=== PATIENT | male | born 1950 | race Caucasian/White ===

== ENCOUNTER 2018-03-10 22:17 | Emergency (ER) | payer MEDICARE, MEDICAID ==
[2018-03-10 22:43] LABS: % BASOPHILS 0.1 % (0.0-2.0); % EOSINOPHILS 0.3 % (0.0-5.0); % LYMPHOCYTES 11.1 % (20.0-50.0); % MONOCYTES 11.3 % (2.0-10.0); % NEUTROPHILS 77.2 % (40.0-80.0); HEMATOCRIT 33.8 % (41.0-60); HEMOGLOBIN 11.4 gm/dL (12-16); LYMPHOCYTE ABSOLUTE 1.2 Th/cmm (1.5-3.0); MEAN CORPUSCULAR HGB CONC 33.6 pg (28.0-36.0); MEAN PLATELET VOLUME 8.6 fl; MONOCYTE ABSOLUTE 1.3 Th/cmm (0.3-1.0); NEUTROPHILE ABSOLUTE 8.6 Th/cmm (1.8-8.0); PLATELET COUNT 160 Th/cmm (150-400); RED BLOOD COUNT 3.07 Mil/cmm (3.80-5.80); RED CELL DISTRIBUTION WIDTH 12.7 % (11.5-20.0); WHITE BLOOD COUNT 11.1 Th/cmm (4.8-10.8)
[2018-03-10 23:01] LABS: ALB/GLOB RATIO 0.9 (1.0-1.8); ALBUMIN 3.5 gm/dL (4.2-5.5); ALKALINE PHOSPHATASE 83 U/L (34-104); ANION GAP 20.7 (7.0-16.0); BILIRUBIN,TOTAL 3.2 mg/dL (0.3-1.0); BUN - UREA NITROGEN 24 mg/dL (7-25); CALCIUM SERUM 9.3 mg/dL (8.6-10.3); CARBON DIOXIDE 19.7 mEq/L (21.0-31.0); CHLORIDE 98 mEq/L (98-107); CREATININE - SERUM 0.7 mg/dL (0.7-1.3); GFR AFRICAN-AMERICAN > 60.0 ml/min (>90); GFR NON AFRICAN-AMERICAN > 60.0 ml/min; GLUCOSE 108 mg/dL (70-105); POTASSIUM SERUM 3.4 mEq/L (3.5-5.1); SGOT 84 U/L (13-39); SGPT/ALT 25 U/L (7-52); SODIUM SERUM 135 mEq/L (136-145); TOTAL PROTEIN,SERUM 7.5 gm/dL (6.0-8.3)
[2018-03-10 23:10] LABS: MEAN CELL VOLUME 110.3 fl (80-99)
--- NOTE | 2018-03-10 23:52 | ED Physician Chart ---
ED Chief Complaint/HPI - Patient Information Date Seen:: 03/10/18 Time Seen:: 21:40 Chief Complaint:: head and face trauma History of Present Illness:: location: head, face, left foot quality: pain severity: mild duration: one day context: pt reports history of regular ethanol use. says he accidentally kicked dining room table yesterday and then also fell and struck head and face. cannot recall if there was loss of consciousness, says he was drinking. doesnt remember. but does state this occurred about 24 hours ago. noted some swelling of face and pain at left foot and this evening decided to come to the ER for pt clarifies that he did not lose consciousness when he fell and hit his head. today decided to call ambulance for transfer to ER because of facial swelling and foot pain. no paralysis or paresthesia. reports moderate soft tissue swelling about left eye such that it is difficult to open eye. however when he opens the eye he says he has normal vision. pain complaint is left foot. no facial pain or head pain is reported during physician history mod factors: none assoc s/s: none hx from pt. Allergies:: Allergies Allergy/AdvReac Type Severity Reaction Status Date / Time No Known Allergies Allergy Verified 03/10/18 22:20 Vitals:: Vital Signs - 8 hr 03/10/18 22:20 Temp 98.1 F HR 110 RR 19 BP 148/87 O2 Sat % 96 Historian:: Patient, EMS Review:: Nurse's Note Reviewed, EMS run form Reviewed ED Review of Systems - Review of Systems General/Constitutional: No fever, No chills, No weakness, Edema (facial edema after ground level fall) Skin: No skin lesions (abrasions on face and scalp (pt says these are from ground level fall yesterday)), No rash Head: No headache Eyes: No loss of vision ENT: No earache, No sore throat Neck: No neck pain, No stiffness Cardio Vascular: No chest pain, No edema Pulmonary: No SOB, No cough, No wheezing GI: No nausea, No vomiting, No diarrhea G/U: No dysuria Musculoskeletal: Muscle pain (soft tissue pain left foot toes. ) Hematopoietic: No lymphadenopathy Allergic/Immuno: No angioedema Neurological: No syncope, No seizure ED Past Medical History - Past Medical History Past Medical History: No significant medical hx Family History: None Social History: Alcohol, Single, Lives Alone Surgical History: None Psychiatricy History: None Medication: None Family Medical History - Family Member Mother History Unknown: Yes ED Physical Exam - Physical Examination General/Constitutional: Awake, Well-developed, well-nourished, Alert, No distress, GCS 15, Non-toxic appearing, Ambulatory Head: Atraumatic (facial trauma with soft tissue tenderness, facial bones are examined, nontender, no deformity, no orbital tenderness. ) Eyes: Lids, conjuctiva normal (bilateral soft tissue edema and ecchymosis of upper and lower eyelids bilaterally. worse left eye. no bleeding, no wound), PERRL, EOMI Skin: Nl inspection, No ecchymosis (multiple facial and scalp ecchymosis. ) ENMT: External ears, nose nl, Nasal exam nl, Oropharynx nl, Tonsils nl Neck: Nontender, Full ROM w/o pain Respiratory: Nl effort/Exclusion, Clear to Auscultation, No Wheeze/Rhonchi/Rales Cardio Vascular: RRR, No murmur, gallop, rubs, NL S1 S2 GI: No tenderness/rebounding/guarding, Nondistended, No McBurney tenderness : No CVA tenderness Extremities: No tenderness or effusion (left foot exam, normal dorsalis pedis pulse, soft tissue tenderness at toes without deformity, no wound, no ecchymosis , no bleeding. ), Full ROM, normal strength in all extremities, No edema ( normal cap refill. ), Normal digits & nails Neuro/Psych: Alert/oriented, DTR's symmetric, Normal sensory exam, Normal motor strength, Judgement/insight normal, Mood normal, No focal deficits Misc: Normal back, No paraspinal tenderness ED Labs/Radiology/EKG Results - Lab Results Results: Laboratory Tests 03/10/18 03/10/18 22:35 22:35 WBC 11.1 H RBC 3.07 L Hgb 11.4 L Hct 33.8 L MCV 110.3 H MCH 37.0 H MCHC Differential 33.6 RDW 12.7 Plt Count 160 MPV 8.6 Neutrophils % 77.2 Lymphocytes % 11.1 L Monocytes % 11.3 H Eosinophils % 0.3 Basophils % 0.1 Sodium 135 L Potassium 3.4 L Chloride 98 Carbon Dioxide 19.7 L Anion Gap 20.7 H BUN 24 Creatinine 0.7 Est GFR ( Amer) > 60.0 Est GFR (Non-Af Amer) > 60.0 BUN/Creatinine Ratio 34.3 Glucose 108 H Calcium 9.3 Total Bilirubin 3.2 H AST 84 H ALT 25 Alkaline Phosphatase 83 Total Protein 7.5 Albumin 3.5 L Globulin 4.0 Albumin/Globulin Ratio 0.9 L Ethyl Alcohol 66 H - Radiology Results Results: Facial CT extensive facial and periorbital soft tissue hematoma no acute facial or orbital fractures, intact globes and lenses - the temporomandibular joints are well situated. intact pterygoid plates. Head CT extensive extracranial soft tissue hematomas. no acute skull fracture no acute intracranial hemorrhage, no mass effect or midline shift age related changes chronic sinus disease both studies are RAD READ - EKG Interpretations Comments:: EKG sinus tachycardia 110 atrial premature complex prolonged QT interval no acute ST elevation no acute ST depression normal axis pt with no chest pain and no SOB abnormal EKG with chronic findings ER READ ED Septic Shock - <6hrs of presentation: Vital Signs: Vital Signs - 8 hr 03/10/18 22:20 Temp 98.1 F HR 110 RR 19 BP 148/87 O2 Sat % 96 Assessment of Lungs: Lung CTA bilateral Assessment of Heart: RRR EKG Interpretation: NSR (sinus tachycardia rate 110 on arrival to ER) Capillary refill evaluation: Capillary refill < 2 secs Skin Exam: Warm, Dry, Good Turgur ED Reassessment (Disposition) - Reassessment Reassessment:: medical decision making pt with multiple soft tissue ecchymosis on scalp and face from ground level fall pt is awake, alert, no neurologic deficits are observed CN 2-12 equal and bilaterally intact. left foot xray normal alignment of foot bones severe degenerative changes old fracture metatarsal 2 and 3 no acute fracture no acute dislocation ER READ pt with lab studies that do not show an acute diagnosis will keep patient overnight in ER and if patient does well. will discharge to home. Reassessment Condition:: Improved - Diagnosis Diagnosis:: head trauma without loss of consciousness facial contusions left foot contusion - Aftercare/Follow up Instructions Aftercare/Follow-Up Instructions:: Refer to Discharge Instructions - Patient Disposition Discharge/Transfer:: Home Condition at Disposition:: Stable, Improved
--- NOTE | 2018-03-11 08:51 | Diagnostic Imaging Report ---
Left foot 2 views Indication: pain Comparison: none Findings: there is evidence of age-indeterminate possibly subacute to chronic fractures involving the necks of the second,, third and fourth metacarpals with diffuse callus formation seen most pronounced within the third metacarpal. Note exam is limited as oblique views were not obtained. There is subtle irregularity seen along the distal aspect of the fifth proximal phalanx. Moderate degenerative changes are noted. Hallux valgus is noted. No significant focal soft tissue swelling. Diffuse atherosclerosis is noted. Small plantar calcaneal spur is noted. Impression: Age indeterminate osseous subacute to chronic fractures of the necks of the second, third, and fourth metacarpal with diffuse bridging callus formation noted. Clinical correlation is recommended Subtle irregularity involving the distal aspect of the fifth proximal phalanx, probable projectional. A nondisplaced fracture is less likely. Please correlate with clinical findings and point tenderness in this region Degenerative changes. Hallux valgus. Atherosclerotic vascular disease. In the setting of trauma, if clinical symptoms persist and there is continued concern for an occult fracture, follow up exams in 5-7 days is suggested.
--- NOTE | 2018-03-11 09:18 | Diagnostic Imaging Report ---
Head CT without intravenous contrast Indication: Fall Comparison: CT facial the same day Technique: Axial images were obtained from the vertex to the skull base without IV contrast. Coronal reconstructions were made. Total DLP: 960, [id number] FINDINGS: Images of the brain obtained without contrast demonstrate diffuse atrophy with bilateral extra-axial CSF prominence. No hemorrhage is identified. Mild white matter disease is noted. The ventricles and basal cisterns are patent. No mass effect or midline shift. Atherosclerosis is noted. There is soft tissue swelling throughout the posterior scalp. Sinusitis is noted. No evidence of a skull fracture. Sinus disease is noted. IMPRESSION: Posterior scalp soft tissue swelling and hematoma formation. No skull fracture identified. Diffuse bilateral CSF prominence probably related to atrophy. No evidence of gross hemorrhage. Mild supratentorial white matter disease which is nonspecific and may be due to chronic microvessel ischemia.. Extensive edema swelling also seen throughout the facial regions bilaterally with anasarca. Clinical correlation is needed. Atherosclerotic vascular disease.
--- NOTE | 2018-03-11 09:31 | Diagnostic Imaging Report ---
CT facial bones without IV contrast History: Fall Comparison: CT head the same day. Technique: Axial images of the facial bones were obtained without IV contrast. Multiplanar reconstructions were made. Total DLP 445 CTD I 21.7 Findings: The bilateral orbital floors are intact. The globes and intraconal compartments are intact. The sinus disease is seen with diffuse mucosal thickening of the paranasal sinuses and areas of opacification of the right ethmoid air cells. No air-fluid levels identified. Mild degenerative changes of bilateral TMJ joints are noted. Extensive dental disease is noted. No mandibular fractures identified. The zygomatic arches are intact. Deviated nasal septum is noted. There is extensive edema and swelling throughout the facial regions, bilaterally. More pronounced edema and swelling of the bilateral orbital regions are noted greatest along the preseptal region on the left. Borderline prominent submandibular lymph nodes are noted. Atherosclerosis is noted. Incidentally noted are retropharyngeal bilateral internal carotid arteries. IMPRESSION: No evidence of an acute fracture. Extensive bilateral facial soft tissue swelling and edema. Correlate clinically for possible inflammatory process and possible cellulitis or trauma. Additional more pronounced soft tissue swelling and possible hematoma formation seen along the bilateral orbital regions greatest along the left preseptal region. Intact globes and intraconal compartments Sinus inflammatory disease greatest within the right ethmoid air cells. Diffuse atherosclerosis. Retropharyngeal bilateral internal jugular veins are incidentally noted. Borderline prominent submandibular gland lymph nodes nonspecific and possibly reactive. Dental disease.
== END 2018-03-11 06:55 | disposition home or self-care (01) ==
LOC: ER 22:17
DX: S00.83XA Contusion of other part of head, initial encounter (principal); S90.32XA Contusion of left foot, initial encounter; W18.09XA Striking against other object with subsequent fall, initial encounter; Y93.89 Activity, other specified; Y92.89 Other specified places as the place of occurrence of the external cause; Y99.8 Other external cause status
CPT/HCPCS: 36415-UA; 70450-TC; 70486-TC; 73620-TC-LT; 80053-TC; 80320-TC; 85025-TC; 93005; Z7502